=== PATIENT | female | born 1965 | race Caucasian/White ===

== ENCOUNTER 2022-02-07 10:30 | Outpatient (CLI) | payer OTHER | END 2022-02-07 10:31 | disposition home or self-care (01) | LOC: CSHMAMMO 10:30 | PROVIDERS: ATTEND Family Medicine | DX: Z12.31 Encounter for screening mammogram for malignant neoplasm of breast (principal) | CPT/HCPCS: 77063; 77067 ==

== ENCOUNTER 2022-07-31 21:55 | Emergency (ER) | payer OTHER ==
[2022-07-31] MEDS ORDERED: Acetaminophen 500 MG TAB ONE (23:57)
[2022-08-01] MEDS ORDERED: Prochlorperazine Maleate 5 MG TAB ONE (00:14)
== END 2022-08-01 00:38 | disposition home or self-care (01) ==
LOC: CSHERS 21:55
DX: R51.9 Headache, unspecified (principal)
CPT/HCPCS: 99283; Q0164